=== PATIENT | female | born 1985 | race African-American/Black ===

== ENCOUNTER 2017-06-12 23:36 | Emergency (ER) | payer OTHER ==
[~2017-06-12] VITALS: Ht 162.6 cm; Wt 127.0 kg
[~2017-06-12 23:36] MED LIST: AUGMENTIN 875-1 EACH PO
[2017-06-13] MEDS ORDERED: IBUPROFEN 800800 M1 PO (00:58)
[2017-06-13 01:35] VITALS: BP 148/76
== END 2017-06-13 01:35 | disposition home or self-care (01) ==
LOC: EDBD 23:36 → M.ERS 23:36
DX: M25.531 Pain in right wrist (principal); V00.131A Fall from skateboard, initial encounter; Y93.21 Activity, ice skating; Y92.330 Ice skating rink (indoor) (outdoor) as the place of occurrence of the external cause; Y99.8 Other external cause status

== ENCOUNTER 2017-06-20 01:16 | Emergency (ER) | payer OTHER ==
[~2017-06-20] VITALS: Ht 162.6 cm; Wt 113.4 kg
[~2017-06-20 01:16] MED LIST changes: +IBUPROFEN 800800 M1 PO
[2017-06-20 01:20] VITALS: BP 175/91
== END 2017-06-20 01:48 | disposition home or self-care (01) ==
LOC: M.ERS 01:16
DX: Z48.00 Encounter for change or removal of nonsurgical wound dressing (principal)

== ENCOUNTER 2019-03-02 19:26 | Emergency (ER) | payer OTHER ==
[~2019-03-02] VITALS: Ht 162.6 cm; Wt 92.1 kg
[2019-03-02] MEDS ORDERED: PHENTERMINE HCL30 MG (19:48)
[2019-03-02 20:20] LABS: URINE BILIRUBIN NEGATIVE (Negative); URINE BLOOD NEGATIVE (Negative); URINE CLARITY CLEAR; URINE COLOR YELLOW; URINE GLUCOSE-RANDOM NEGATIVE (Negative); URINE KETONES TRACE (Negative); URINE LEUKOCYTES-REFLEX NEGATIVE (Negative); URINE NITRITE-REFLEX NEGATIVE (Negative); URINE PROTEIN NEGATIVE (Negative); URINE SPECIFIC GRAVITY >= 1.030 (1.005-1.030); URINE UROBILINOGEN 0.2 E.U./dl (0.2-1.0)
[2019-03-02 20:26] LABS: ABSOLUTE BASOPHILS 0.1 thou/uL (0.0-0.2); ABSOLUTE EOSINOPHILS 0.1 thou/uL (0.0-0.7); ABSOLUTE MONOCYTES 0.3 thou/uL (0.0-1.2); ABSOLUTE NEUTROPHILS 3.6 thou/uL (1.6-8.1); BASOPHILS 0.9 %; EOSINOPHILS 1.3 %; HEMOGLOBIN 11.6 gm/dL (12.0-15.0); LYMPHOCYTES 33.2 %; MCH 25.3 pg (26.0-34.0); MCV 76.7 fL (80.0-100.0); MONOCYTES 5.7 %; MPV 8.3 fl. (7.2-11.1); NUCLEATED RBCS 0 /100WBC; PLATELET COUNT* 269 thou/uL (150-400); POLYS 58.9 %; RBC 4.57 mil/uL (4.20-5.00); RDW-CV 15.7 % (10.5-14.5); WBC 6.1 thou/uL (4.0-11.0)
[2019-03-02 20:33] LABS: CALCIUM 8.8 mg/dL (8.5-10.1); CREATININE 1.1 mg/dL (0.6-1.3); POTASSIUM 3.5 mmol/L (3.5-5.1)
[2019-03-02 20:38] LABS: ALBUMIN 3.3 g/dL (3.4-5.0); TOTAL BILIRUBIN 0.1 mg/dL (<0.1-1.0); TOTAL PROTEIN 7.4 g/dL (6.4-8.2)
[2019-03-02] MEDS ORDERED: BUTALB-APAP-CA1 EACH PO (21:00)
[2019-03-02] MEDS ORDERED: IBUPROFEN 800800 M1 PO (21:00)
[2019-03-02 21:16] VITALS: BP 167/89
== END 2019-03-02 21:17 | disposition home or self-care (01) ==
LOC: M.ERS 19:26
PROVIDERS: Nurse Practitioner Family
DX: R51 Headache (principal); E86.0 Dehydration; R03.0 Elevated blood-pressure reading, without diagnosis of hypertension; E66.9 Obesity, unspecified; Z68.34 Body mass index [BMI] 34.0-34.9, adult

== ENCOUNTER 2019-09-01 21:39 | Emergency (ER) | payer OTHER ==
[~2019-09-01] VITALS: Ht 162.6 cm; Wt 97.5 kg
[~2019-09-01 21:39] MED LIST changes: +BUTALB-APAP-CA1 EACH PO; +PHENTERMINE HCL30 MG
[2019-09-01 22:22] LABS: INFLUENZA A ANTIGEN Negative (Negative); INFLUENZA B ANTIGEN Negative (Negative)
[2019-09-01] MEDS ORDERED: AMOX TR-K CLV1 EAC4 PO (22:44)
[2019-09-01] MEDS ORDERED: TYLENOL WITH CO1 TA1 PO (22:44)
[2019-09-01 22:54] VITALS: BP 164/98
== END 2019-09-01 22:54 | disposition home or self-care (01) ==
LOC: M.ERS 21:39
PROVIDERS: Emergency Medicine
DX: J02.9 Acute pharyngitis, unspecified (principal); E66.9 Obesity, unspecified; Z68.36 Body mass index [BMI] 36.0-36.9, adult